=== PATIENT | male | born 2000 | race African-American/Black ===

== ENCOUNTER 2020-09-06 17:51 | Emergency (ER) | payer MEDICAID ==
[2020-09-06] MEDS ORDERED: Morphine 4 MG/ML VIAL ONE (18:15)
[2020-09-06] MEDS ORDERED: Naloxone HCl 0.4 mg/ml Vial ONE (18:15)
[2020-09-06] MEDS ORDERED: Bupivacaine 0.25% 10 ML VIAL ONE (18:18)
[2020-09-06] MEDS ORDERED: Bupivacaine 0.5% 10 ML VIAL ONE (18:18)
== END 2020-09-06 18:45 | disposition home or self-care (01) ==
LOC: ERS 17:51
DX: S43.004A Unspecified dislocation of right shoulder joint, initial encounter (principal); X50.1XXA Overexertion from prolonged static or awkward postures, initial encounter; Y93.72 Activity, wrestling
CPT/HCPCS: 23650; 96374; J2270; J2310; J3490; S0020